=== PATIENT | female | born 1955 | race Caucasian/White ===

== ENCOUNTER 2024-03-12 07:05 | Day surgery (SDC) | payer OTHER, SELFPAY ==
[2024-03-12] VITALS (17 sets, daily range): BP systolic 113–144; BP diastolic 60–110; PULSE 64–85; RESP 14–16; TEMP 36.1–36.7; O2SAT 93–97; BMI 31.2
[2024-03-12] MEDS: ACETAMINOPHEN 500 MG TABLET 1000 MG PO (07:46)
[2024-03-12] MEDS: OXYCODONE (CR) 10 MG TAB.ER.12H PO (07:47)
[2024-03-12] MEDS: SODIUM CHLORIDE 0.9 % (FLUSH) 10 ML SYRINGE IVF (07:48)
--- NOTE | 2024-03-12 08:00 | W.PM.H&PU ---
History & Physical Update History & Physical Update H&P Reviewed and patient assessed: No changes noted
[2024-03-12] MEDS: MIDAZOLAM HCL 1 MG/ML inj IVP (08:54)
[2024-03-12] MEDS: LACTATED RINGERS 1000 ML 1,000 ML 100 ML IV (08:54)
[2024-03-12] MEDS: fentaNYL 100 MCG/2 ML inj IVP (08:54)
[2024-03-12] MEDS: CEFAZOLIN 2 GM in 0.9 % SODIUM CHLORIDE Mini-bag 100 ML IVPB (09:15)
--- NOTE | 2024-03-12 09:19 | SUR.PREOP ---
TIME?OUT:?0854 PT/RN/MDA?VERIFICATION?OF?SURGICAL?SITE,?PROCEDURE,?AND?CONSENT OBTAINED?PRIOR?TO?INVASIVE?PROCEDURE.all in agreement
[2024-03-12] MEDS: TRANEXAMIC ACID 100 MG/ML INJ 1000 MG IV (09:20)
--- NOTE | 2024-03-12 10:54 | P.NB_ITS ---
Nerve Block Nerve Block Time Seen by Provider: 08:55 Date Seen: 03/12/24 Type of block requested by surgeon for post-operative analgesia: adductor canal Side: right Time out performed: Yes Verification of patient name: Yes Verification of date of : Yes Site marking: site marked Name of person performing procedure: Je Continuous monitoring Was continuous monitoring of O2 sat, B/P, quality assurance monitor final, recorded every 15 minutes?: Yes Procedure Checklist: sterile prep, needles and gloves Ultrasound guided. Images saved: Yes Medications given in 5ml increments after negative aspiration: Marcaine %: 0.25 mL: 15 Needle gauge: 20 Precedex (mcg): 25 Patient tolerated procedure well: Yes Additional comments: Needle noted adjacent to nerve Block Charges Block Charge (with Pro Fee): Femoral Nerve Use of Ultrasound Machine for Block: Yes- US Guidance/pain block
--- NOTE | 2024-03-12 10:55 | W.PM.NB ---
Nerve Block Nerve Block Time Seen by Provider: 08:55 Date Seen: 03/12/24 Type of block requested by surgeon for post-operative analgesia: geniculars Side: right Time out performed: Yes Verification of patient name: Yes Verification of date of : Yes Site marking: site marked Name of person performing procedure: Je Continuous monitoring Was continuous monitoring of O2 sat, B/P, threat monitoring analyst, recorded every 15 minutes?: Yes Procedure Checklist: sterile prep, needles and gloves Medications given in 5ml increments after negative aspiration: Marcaine %: 0.5 mL: 9 Needle gauge: 25 Patient tolerated procedure well: Yes Block Charges Block Charge (with Pro Fee): Genicular Nerve Block Use of Ultrasound Machine for Block: No
--- NOTE | 2024-03-12 10:56 | W.ANESCHARGE ---
Anesthesia Charges Start Date/Time Anesthesia Start Date: 03/12/24 Anesthesia Start Time: 09:05 Stop Date/Time Anesthesia Stop Date: 03/12/24 Anesthesia Stop Time: 11:05
--- NOTE | 2024-03-12 11:05 | W.ANESCHARGE ---
Anesthesia Charges Start Date/Time Anesthesia Start Date: 03/12/24 Anesthesia Start Time: 09:05 Stop Date/Time Anesthesia Stop Date: 03/12/24 Anesthesia Stop Time: 11:05
--- NOTE | 2024-03-12 11:07 | CRLHL7_ITS ---
For Patients: As a result of the Cures Act, medical imaging exams and procedure reports are released immediately into your electronic medical record. You may view this report before your referring provider. If you have questions, please contact your health care provider. Indication: Postop Technique: Two views right knee Findings/Impression: Hardware from a right total knee arthroplasty is in satisfactory position. Bone alignment is normal. No sign of acute fracture. Postop changes are within normal limits. Dictated by Truman Wong MD @ 03/12/2024 12:16:50 PM (Electronically Signed)
--- NOTE | 2024-03-12 11:25 | PM.ORPRC ---
Procedure Note Date of procedure: 03/12/24 Procedure: PREOPERATIVE DIAGNOSIS: 1. Right knee osteoarthritis, primary, severe POSTOPERATIVE DIAGNOSIS: 1. Right knee osteoarthritis, primary, severe PROCEDURE: 1. Right total knee arthroplasty - subvastus SURGEON: Taran Woods MD. POTATO CHIP SORTER: CATALINA Vásquez - Of note, a skilled orthodontic technician assistant was critical for this case to aid in patient positioning, tissue retraction, limb manipulation/positioning, and closure. ANESTHESIA: Spinal anesthetic IMPLANTS: DePuy J&J all cemented TKA - Attune PS femur size 4 standard, size 3 tibia, 6 mm poly spacer, 35 mm patella TOURNIQUET: 90 min at 300 torr EBL: 50 ml COMPLICATIONS: None evident INDICATIONS: The patient is a pleasant 68-year-old female who has experienced severe right knee pain and difficulty bearing weight. Workup included x-rays which revealed severe osteoarthrosis in the knee. Given the deformity, the dysfunction, and the pain, as well as the failure of nonoperative management, recommendation was made for surgery. FINDINGS: Full-thickness chondral loss with erosion/grooving of the medial femoral condyle. Significant patellofemoral chondromalacia and lateral compartment involvement as well. Degenerative meniscus pathology. Small effusion upon entering the joint. DESCRIPTION OF PROCEDURE: Following a thorough discussion of risks, benefits, and alternatives consent was obtained and the right knee was marked. The patient was brought to the operating room and placed supine on the operating table. Induction of anesthesia was undertaken. 2 g IV Ancef and 1 g tranexamic acid was administered within 1 hr of incision preoperatively. Proper time-out was performed identifying proper patient, site, procedure. The operative extremity was prepped and draped in the appropriate sterile fashion using ChloraPrep after the patient was positioned supine with all bony prominences well padded. A longitudinal, anterior, midline skin incision was made starting approximately 3cm proximal to the superior pole of the patella and advanced distal to the tibial tubercle. A subvastus approach was utilized. A medial subperiosteal sleeve was created with knife, valdivia elevator and curved osteotome. The retropatellar fatpad was resected and the synovium in the suprapatellar pouch excised to visualize the anterior femoral cortex. Femoral preparation was performed via an intramedullary guide. Step drill allowed access into the femoral canal. The distal cutting guide was placed with 5? of valgus and 11 mm cut on the distal femur due to flexion contracture of 10? plus. Femur was sized using a anterior referencing guide in 3? of external rotation. This found have a best fit with the sizing noted above. The 4 in 1 cutting block was then placed, and the distal femur shaped accordingly. The box cut was then created and the trial implant inserted to confirm appropriate fit. We turned our attention to the proximal tibia. Extramedullary guide was utilized for cutting with the goal of being 90 degree cut from the mechanical axis of the tibia in the varus/valgus plane utilizing tibial crest as the primary alignment. Initially a 2 mm resection was performed from the medial tibial plateau. Ultimately, balancing was achieved in both flexion and extension in both varus and valgus. The knee was able to achieve full extension as well comfortably. The patella was initially measured and found have a thickness of 20 mm. It was resected back to approximately 13 mm. It was sized to be a best fit with as noted above. This was drilled, trial placed. All trials were placed and found to have an excellent stability and balance. At this stage, trial implants were removed, the knee was thoroughly irrigated with normal saline, and the cement was mixed. After irrigation, the knee was thoroughly dried, and cement placed, with the real tibial and femoral implants placed along with the patella. Trial poly spacer was placed and confirmed to have excellent range of motion and full extension, and the real poly spacer opened and inserted. All extra cement was removed, and a 3 min Betadine soak performed. Finally, a final irrigation round with normal saline was performed. Closure performed with 0 Vicryl and #0 Stratafix for the quad tendon/retinaculum. 2-0 Vicryl for the subcutaneous and 4-0 Stratafix for subcuticular closure. Dressings were applied and the patient was awoken from anesthesia after the tourniquet deflated and transferred the PACU in stable condition. A skilled orthodontic technician assistant was critical for this case to aid in patient positioning, tissue retraction, bone exposure, limb manipulation/positioning, patient safety, and closure. PLAN: 1. Weight bear as tolerated operative extremity. 2. 23 hr perioperative antibiotics. 3. Ice. 4. PT/OT consults for ambulation assistance/mobility education. 5. Social work consult for discharge planning. 6. DVT prophylaxis with at SCDs and aspirin twice daily.
[2024-03-12] MEDS: ACETAMINOPHEN 325 MG TABLET PO (12:36)
[2024-03-12] MEDS: OXYCODONE 5 MG TABLET PO (12:37)
== END 2024-03-12 14:35 | disposition home or self-care (01) ==
LOC: OR 07:06
PROVIDERS: PCP Physician Assistant; Visit Provider Orthopaedic Surgery Sports Medicine
PROC: (CPT 27447; principal; 2024-03-12 09:15)
DX: M17.11 Unilateral primary osteoarthritis, right knee (principal); G89.18 Other acute postprocedural pain; I10 Essential (primary) hypertension
CPT/HCPCS: 27447; 01402; 64447; 64454; 73560; 76942; 97110; 97116; 97161; A9270; C1776; J0665; J0690; J1100; J2250; J2405; J2704; J3010; J7120; P9047

== ENCOUNTER 2024-05-09 08:15 | Outpatient (RCR) | payer OTHER, SELFPAY | END 2024-05-09 15:09 | disposition home or self-care (01) | PROVIDERS: PCP Physician Assistant; Visit Provider Orthopaedic Surgery Sports Medicine | DX: M17.11 Unilateral primary osteoarthritis, right knee (principal); Z96.651 Presence of right artificial knee joint; Z51.89 Encounter for other specified aftercare | CPT/HCPCS: 97110; 97112; 97116; 97140; 97161; 97164 ==

== ENCOUNTER 2024-11-03 07:03 | Day surgery (SDC) | payer MEDICARE, SELFPAY ==
[2024-11-03] VITALS (17 sets, daily range): BP systolic 90–163; BP diastolic 61–112; PULSE 47–90; RESP 12–20; TEMP 36–36.8; O2SAT 92–100; BMI 31.6
[2024-11-03] MEDS: SODIUM CHLORIDE 0.9 % (FLUSH) 10 ML SYRINGE IVF (07:40)
[2024-11-03] MEDS: LACTATED RINGERS 1000 ML 1,000 ML 100 ML IV ×2 (07:40→09:18)
--- NOTE | 2024-11-03 07:51 | W.PM.H&PU ---
History & Physical Update History & Physical Update H&P Reviewed and patient assessed: No changes noted
[2024-11-03] MEDS: OXYCODONE (CR) 10 MG TAB.ER.12H PO (08:20)
[2024-11-03] MEDS: ACETAMINOPHEN 500 MG TABLET 1000 MG PO (08:20)
--- NOTE | 2024-11-03 08:22 | SUR.PREOP ---
TIME?OUT:?08 PT/RN/MDA?VERIFICATION?OF?SURGICAL?SITE,?PROCEDURE,?AND?CONSENT OBTAINED?PRIOR?TO?INVASIVE?PROCEDURE.
[2024-11-03] MEDS: MIDAZOLAM HCL 1 MG/ML inj IVP (08:27)
[2024-11-03] MEDS: fentaNYL 100 MCG/2 ML inj IVP (08:27)
[2024-11-03] MEDS: CEFAZOLIN 1 GM inj IVP (09:18)
--- NOTE | 2024-11-03 09:36 | P.NB_ITS ---
Nerve Block Nerve Block Time Seen by Provider: 08:30 Date Seen: 11/03/24 Type of block requested by surgeon for post-operative analgesia: geniculars Side: left Time out performed: Yes Verification of patient name: Yes Verification of date of : Yes Site marking: site marked Name of person performing procedure: Je Continuous monitoring Was continuous monitoring of O2 sat, B/P, traffic monitor specialist, recorded every 15 minutes?: Yes Procedure Checklist: sterile prep, needles and gloves Ultrasound guided. Images saved: Yes Medications given in 5ml increments after negative aspiration: Marcaine %: 0.25 mL: 9 Needle gauge: 25 Patient tolerated procedure well: Yes Block Charges Block Charge (with Pro Fee): Genicular Nerve Block
--- NOTE | 2024-11-03 09:36 | P.ANES_ITS ---
Anesthesia Charges Start Date/Time Anesthesia Start Date: 11/03/24 Anesthesia Start Time: 08:57 Stop Date/Time Anesthesia Stop Date: 11/03/24 Anesthesia Stop Time: 11:25 Coding CPT Codes CPT Codes: ANESTH KNEE ARTHROPLASTY - 12414 ([id number]) P2 - PATIENT W/MILD SYST DISEASE, QK - EPOXY SPECIALIST 2-4 CNCRNT ANES PROC, QX - RHEUMATOLOGY SPECIALIST SVC W/ MD MED DIRECTION
--- NOTE | 2024-11-03 09:36 | P.NB_ITS ---
Nerve Block Nerve Block Time Seen by Provider: 08:30 Date Seen: 11/03/24 Type of block requested by surgeon for post-operative analgesia: adductor canal Side: left Time out performed: Yes Verification of patient name: Yes Verification of date of : Yes Site marking: site marked Name of person performing procedure: Je Continuous monitoring Was continuous monitoring of O2 sat, B/P, metal alloy scientist, recorded every 15 minutes?: Yes Procedure Checklist: sterile prep, needles and gloves Ultrasound guided. Images saved: Yes Medications given in 5ml increments after negative aspiration: Marcaine %: 0.25 mL: 15 Needle gauge: 20 Precedex (mcg): 25 Patient tolerated procedure well: Yes Block Charges Block Charge (with Pro Fee): Femoral Nerve Use of Ultrasound Machine for Block: Yes- US Guidance/pain block
--- NOTE | 2024-11-03 09:36 | W.ANESCHARGE ---
Anesthesia Charges Start Date/Time Anesthesia Start Date: 11/03/24 Anesthesia Start Time: 08:57 Stop Date/Time Anesthesia Stop Date: 11/03/24 Anesthesia Stop Time: 11:25 Coding CPT Codes CPT Codes: ANESTH KNEE ARTHROPLASTY - 67989 ([id number]) P2 - PATIENT W/MILD SYST DISEASE, QK - YOUTH PROBATION OFFICER 2-4 CNCRNT ANES PROC, QX - FOREST ECONOMIST SVC W/ MD MED DIRECTION
--- NOTE | 2024-11-03 11:21 | CRLHL7_ITS ---
For Patients: As a result of the Cures Act, medical imaging exams and procedure reports are released immediately into your electronic medical record. You may view this report before your referring provider. If you have questions, please contact your health care provider. INDICATION: Postop total knee arthroplasty. TECHNIQUE: Left knee two views. COMPARISON: 09/05/2024. FINDINGS: Left knee arthroplasty appears appropriately positioned. Soft tissue gas consistent with recent surgery. No acute osseous abnormality or other significant interval change. IMPRESSION: Expected changes status post left knee arthroplasty. Dictated by Rolando Wilson MD @ 11/04/2024 11:44:02 AM (Electronically Signed)
--- NOTE | 2024-11-03 11:27 | P.ORPRC_ITS ---
Procedure Note Date of procedure: 11/03/24 Procedure: PREOPERATIVE DIAGNOSIS: 1. Left knee osteoarthritis, primary, severe POSTOPERATIVE DIAGNOSIS: 1. Left knee osteoarthritis, primary, severe PROCEDURE: 1. Left total knee arthroplasty - subvastus SURGEON: Taran Woods MD. SEAFOOD TEAM MEMBER: Marco A Rodriguez PA-C - Of note, a skilled event marketing assistant was critical for this case to aid in patient positioning, tissue retraction, limb manipulation/positioning, and closure. ANESTHESIA: Spinal anesthetic EBL: 50ml IMPLANTS: DePuy J&J all cemented TKA - Attune PS femur size 5 narrow Size 4 tibia 5 poly spacer 35 mm patella TOURNIQUET: 90 min at 300 torr COMPLICATIONS: None evident INDICATIONS: The patient is a pleasant 69-year-old female who has experienced severe left knee pain and difficulty bearing weight. Workup included x-rays which revealed severe osteoarthrosis in the knee. Given the deformity, the dysfunction, and the pain, as well as the failure of nonoperative management, recommendation was made for surgery. FINDINGS: Full-thickness chondral loss diffusely throughout the medial and to lesser degree patellofemoral and lateral compartment. Degenerative meniscus pathology medial greater than lateral. Moderate effusion upon entering the joint. DESCRIPTION OF PROCEDURE: Following a thorough discussion of risks, benefits, and alternatives consent was obtained and the left knee was marked. The patient was brought to the operating room and placed supine on the operating table. Induction of anesthesia was undertaken. 2 g IV Ancef and 1 g tranexamic acid was administered within 1 hr of incision preoperatively. Proper time-out was performed identifying proper patient, site, procedure. The operative extremity was prepped and draped in the appropriate sterile fashion using ChloraPrep after the patient was positioned supine with all bony prominences well padded. A longitudinal, anterior, midline skin incision was made starting approximately 3cm proximal to the superior pole of the patella and advanced distal to the tibial tubercle. A subvastus approach was utilized. A medial subperiosteal sleeve was created with knife, valdivia elevator and curved osteotome. The retropatellar fatpad was resected and the synovium in the suprapatellar pouch excised to visualize the anterior femoral cortex. Femoral preparation was performed via an intramedullary guide. Step drill allowed access into the femoral canal. The distal cutting guide was placed with 5? of valgus and 10 mm cut on the distal femur. Femur was sized using a posterior referencing guide in 3? of external rotation. This found have a best fit with the sizing noted above. The 4 in 1 cutting block was then placed, and the distal femur shaped accordingly. The box cut was then created and the trial implant inserted to confirm appropriate fit. We turned our attention to the proximal tibia. Extramedullary guide was utilized for cutting with the goal of being 90 degree cut from the mechanical axis of the tibia in the varus/valgus plane utilizing tibial crest as the primary alignment. Initially a 2 mm resection was performed from the medial tibial plateau. Ultimately, balancing was achieved in both flexion and exte nsion in both varus and valgus. The knee was able to achieve full extension as well comfortably. The patella was initially measured and found have a thickness of 21 mm. It was resected back to approximately 14 mm. It was sized to be a best fit with as noted above. This was drilled, trial placed. All trials were placed and found to have an excellent stability and balance. At this stage, trial implants were removed, the knee was thoroughly irrigated with normal saline, and the cement was mixed. After irrigation, the knee was thoroughly dried, and cement placed, with the real tibial and femoral implants placed along with the patella. Trial poly spacer was placed and confirmed to have excellent range of motion and full extension, and the real poly spacer opened and inserted. All extra cement was removed, and a 3 min Betadine soak performed. Finally, a final irrigation round with normal saline was performed. Closure performed with 0 PDS and #0 Stratafix for the quad tendon/retinaculum. 2-0 Vicryl/Stratafix for the subcutaneous and 4-0 Monocryl for subcuticular closure. Dressings were applied and the patient was awoken from anesthesia after the tourniquet deflated and transferred the PACU in stable condition. A skilled event marketing assistant was critical for this case to aid in patient positioning, tissue retraction, bone exposure, limb manipulation/positioning, patient safety, and closure. PLAN: 1. Weight bear as tolerated operative extremity. 2. 23 hr perioperative antibiotics. 3. Ice. 4. PT/OT consults for ambulation assistance/mobility education. 5. Social work consult for discharge planning. 6. DVT prophylaxis with at SCDs and aspirin twice daily.
--- NOTE | 2024-11-03 11:30 | P.ANES_ITS ---
Anesthesia Charges Start Date/Time Anesthesia Start Date: 11/03/24 Anesthesia Start Time: 08:57 Stop Date/Time Anesthesia Stop Date: 11/03/24 Anesthesia Stop Time: 11:25 Coding CPT Codes CPT Codes: ANESTH KNEE ARTHROPLASTY - 47100 ([id number]) P2 - PATIENT W/MILD SYST DISEASE, QK - VIDEO PRODUCTION ENGINEER 2-4 CNCRNT ANES PROC, QX - WOOD AND WOOD PRODUCTS LABOURER SVC W/ MD MED DIRECTION
--- NOTE | 2024-11-03 11:30 | W.ANESCHARGE ---
Anesthesia Charges Start Date/Time Anesthesia Start Date: 11/03/24 Anesthesia Start Time: 08:57 Stop Date/Time Anesthesia Stop Date: 11/03/24 Anesthesia Stop Time: 11:25 Coding CPT Codes CPT Codes: ANESTH KNEE ARTHROPLASTY - 84824 ([id number]) P2 - PATIENT W/MILD SYST DISEASE, QK - HAND ALTERATIONS SEAMSTRESS 2-4 CNCRNT ANES PROC, QX - ONLINE ADVERTISING DIRECTOR SVC W/ MD MED DIRECTION
[2024-11-03] MEDS: hydrOXYzine pamoate 25 MG CAPSULE PO (12:19)
[2024-11-03] MEDS: IBUPROFEN 200 MG TABLET 400 MG PO (12:19)
[2024-11-03] MEDS: OXYCODONE 5 MG TABLET PO (12:53)
--- NOTE | 2024-11-03 14:39 | SUR.PHASEII ---
Pt voided before going down to PT. Cleared by PT. Reviewed d/c instructions. VSS. pt rated pain 2/10 in knee. Tolerable. Wheelchair out to car with staff and .
== END 2024-11-03 14:41 | disposition home or self-care (01) ==
PROVIDERS: PCP Physician Assistant; Visit Provider Orthopaedic Surgery Sports Medicine
PROC: (CPT 27447; principal; 2024-11-03 09:00)
DX: M17.12 Unilateral primary osteoarthritis, left knee (principal); G89.18 Other acute postprocedural pain; I10 Essential (primary) hypertension
CPT/HCPCS: 27447; 01402; 64447; 64454; 73560; 76942; 97110; 97116; 97161; 97530; A9270; C1776; J0665; J0690; J1100; J2250; J2371; J2405; J2704; J3010; J3490; J7120

== ENCOUNTER 2024-12-11 09:15 | Outpatient (RCR) | payer MEDICARE, SELFPAY ==
--- NOTE | 2024-11-06 09:24 | PT.OPEX ---
PT [place] Outpatient Eval PT [facility] Outpatient Eval Start: 11/05/24 15:47 Freq: Status: Active Protocol: Document 11/06/24 07:25 HLA (Rec: 11/06/24 09:17 HLA [id number]) E-signed By Renee Rodriguez, PT, DPT Physical Therapy Outpatient Evaluation Insurance Information Insurance Name [employer] Medical Diagnosis L TKA R TKA 03/27 Treating Diagnosis pain, weakness, impaired ROM, impaired transfers and gt s/p L knee post TKA Referring MD Woods Subjective Preferred Name Vanessa Subjective L TKA 11/03/24 same day surgery, returned home with spouse, doing her ex. Sleep is going ok. Finds her TKA is maybe easier this time than last year's R TKA. Maybe I just know more. Taking oxy mainly for PT, otherwise Tylenol. Using ice packs and machine, elevating and walking with her ww as instructed. Pain Comments L knee pain 4-5/10 with activity and at rest. Date of Last 11/03/24 Physician Visit Date of Surgery (If 11/03/24 applicable) Current Work Status Retired Precautions Weight Bearing Weight Bear as Tolerated Status Therapy Limitations/ Not Limited Systems Review Objective Range of Motion L hip 0-110 flex, abd 0-40 R hip 0-110 flex, abd 0-40 L knee 3-93 R knee 0-110 ankles DF to 10, PF 50 B Strength 5/5 R LE 5-/5 L hip 3-/5 knee ext, flex 4/5 DF/PF 5/5 B Swelling L knee circumference 7 cm prox to patella 53 cm mid patella 42 cm 7 cm distal to patella 43 cm edema L thigh to ankle, bruising, surgical bandage intact Palpation pain post knee, under patella Balance & Gait Gait-some hip flex at waist, walker 200 feet. Reminders for heel toe patterning. Did work with pt on cane 100 feet, sba. Discussed progression to cane, activity level at home. Stairs step to pattern. Balance fair standing, fair+ with cane and walker Posture some hip flex/ant pelvic tilt Sensation/Reflexes intact to light touch Functional Test LEFS 16/80 Performed & Score Assessment Assessment/ Vanessa is a 69-year-old female who underwent L TKA with Impression Dr. Woods on 11/03/24. She had previous R TKA 2023 with good results. At baseline, pt lives in a 1 level home, 2 step entry with 2 railings. Spouse has been assisting her as needed post surgery. She arrives today using a ww. She has not done her ex other than ankle pumps. Pt does own a cane. Therapist reviewed positioning, use of ice, activity level, bed mobility, transfers, gt with walker, stairs and car transfers today. Pt was instructed in TKA ex, use of belt/strap to assist, performed all with AAROM 3-93 degrees seated and supine. LEFS 16/80 today. Patient presents with edema, pain surgical leg, impaired ROM, impaired strength, impaired transfers and impaired ambulation. She will benefit from PT 2x/week for strengthening, ROM , balance, gt and transfer training, advancing to reciprocal stairs and return to community distance amb. Primary Functional impaired ROM, strength, gt, transfers, balance post L Limitations TKA Plan of Care Rehabilitation Good Potential Physical Therapy Within 10-12 weeks: Goals 1. Pt will have knee AROM 0-120 degrees for transfers, ADLs, and stairs independence. 2. Pt will amb 20 min with se cane or no device as indicated, safely and independently for community and household ambulation. 3. Pt will be independent in home ex program for skilled nursing pain management and to promote independence and to decrease fall risk. 4. Pt will ascend/descend 13 stairs with railing independently for community mobility. Coordination/ Referral Source Communication With Treatment Plan/ Gait Training,Ice/Cold/Vasopneumatic,Joint Mobilization Direct Interventions ,Manual Therapy,Neuromuscular Re-ed,Orthotics/Braces, Self-Care/Home Management,Therapeutic Activities Patient Will Be Completion of LTG(s),Skills Plateau,Independent w/HEP, Discharged From Independently Progressing Therapy Evaluation Billing Untimed Code 10 Treatment Minutes PT Eval No Charge No Complexity Low Certification Information Initial 11/06/24 Certification Date Ending Certification 02/03/25 Date Provider Signature Yes Required Provider Signature POC & Medical Necessity Shows Agreement With Physician NPI Number Write NPI# Here Physician Comment/ : Change Physician Signature Please Sign/Date Here & Date Requested
== END 2024-12-11 13:42 | disposition home or self-care (01) ==
PROVIDERS: PCP Physician Assistant; Visit Provider Orthopaedic Surgery Sports Medicine
DX: Z47.1 Aftercare following joint replacement surgery (principal); Z96.653 Presence of artificial knee joint, bilateral; Z51.89 Encounter for other specified aftercare
CPT/HCPCS: 97110; 97116; 97140; 97161; A9270; J2250; J3010